=== PATIENT | male | born 1935 | race Caucasian/White ===

== ENCOUNTER 2017-05-28 07:57 | Day surgery (SDC) | payer MEDICARE, OTHER ==
[~2017-05-28 07:57] MED LIST: Lactated Ringers 1,000 ML IV SCH; Lidocaine 1%/Sod Bicarbonate in NS 8.4% 1 ML Syringe IV PRN; Sodium Chloride 0.9% 10 ML Syringe FLUSH PRN
--- NOTE | 2017-05-28 08:26 | PCM.PREANE ---
Preanesthetic Assessment - Procedure Proposed Procedure: Surveillance colonsocopy - Anesthesia/Transfusion/Family Hx Anesthesia History: Prior Anesthesia Without Reaction Family History of Anesthesia Reaction: No Transfusion History: Prior Transfusion Without Reaction (CABG) - Review of Systems General: No Symptoms Pulmonary: No Symptoms Cardiovascular: Other (CAD, CABG, HTN, GLD, cardiomyopathy, afib, DC,f walks every day at [facility] ) Gastrointestinal: Other (GERD) Neurological: Other (CVA 1996) Other: Reports: Easy Bleeding, Easy Bruising - Physical Assessment NPO Status Date: 05/27/17 NPO Status Time: 19:30 Pulse: 65 O2 Sat by Pulse Oximetry: 95 Respiratory Rate: 16 Blood Pressure: 157/99 Temperature: 36.5 C Height: 1.7 m Weight: 91.626 kg ASA Class: 3 Mental Status: Alert & Oriented x3 Airway Class: Mallampati = 3 Dentition: Reports: Dentures Thyro-Mental Finger Breadths: 3 Mouth Opening Finger Breadths: 3 ROM/Head Extension: Full Lungs: Clear to Auscultation, Normal Respiratory Effort Cardiovascular: Regular Rate, Irregular Rhythm (afib controlled ) - Allergies Allergies/Adverse Reactions: Allergies Allergy/AdvReac Type Severity Reaction Status Date / Time No Known Allergies Allergy Verified 04/10/15 15:36 - Blood Blood Available: No Product(s) Available: None - Anesthesia Plan Pre-Op Medication Ordered: None Beta Hiwot: Metoprolol Med Last Dose Date: 05/28/17 Med Last Dose Time: 06:00 - Acknowledgements Anesthesia Type Planned: MAC Pt an Appropriate Candidate for the Planned Anesthesia: Yes Alternatives and Risks of Anesthesia Discussed w Pt/Guardian: Yes Pt/Guardian Understands and Agrees with Anesthesia Plan: Yes PreAnesthesia Questionnaire HEENT History: Reports: Impaired Vision Other HEENT History: pharyngitis, glasses, dentures Cardiovascular History: Reports: Afib, Arrhythmia, CAD, High Cholesterol, Hypertension, Other (See Below) Other Cardiovascular History: cardiomyopathy, sick sinus syndrome, valvular heart disease, tachycardia, edena Respiratory History: Reports: Other (See Below) Other Respiratory History: acute bronchitis, pharyngitis, cough Gastrointestinal History: Reports: Colon Polyp, Hiatal Hernia Other Gastrointestinal History: acute upper GI bleed, dysplagia in colonic adenoma, esophagitis Genitourinary History: Reports: BPH Other Genitourinary History: elevated PSA CAN RECONDITIONER History: Reports: None Musculoskeletal History: Reports: Gout Other Musculoskeletal History: synovial cyst of popliteal space Neurological History: Reports: CVA, Other (See Below) Other Neuro History: stroke, cerebral embolism with cerebral infarction, syncope Psychiatric History: Reports: None Endocrine/Metabolic History: Reports: None Hematologic History: Reports: Anemia Immunologic History: Reports: None Oncologic (Cancer) History: Reports: Colon Other Dermatologic History: ruptured bakers cyst R knee, forearm contusion, sebaceous cyst - Past Surgical History Head Surgeries/Procedures: Reports: None Cardiovascular Surgical History: Reports: Coronary Artery Bypass Respiratory Surgical History: Reports: None GI Surgical History: Reports: Colonoscopy, EGD, Hernia Repair/Other, Other (See Below) Other GI Surgeries/Procedures: right hemicolectomy Female Surgical History: Reports: None Male Surgical History: Reports: None Endocrine Surgical History: Reports: None Neurological Surgical History: Reports: None Musculoskeletal Surgical History: Reports: Other (See Below) Other Musculoskeletal Surgeries/Procedures:: elbow nerve transposition Oncologic Surgical History: Reports: None - SUBSTANCE USE Smoking Status *Q: Never Smoker Tobacco Use Within Last Twelve Months: No Second Hand Smoke Exposure: No Recreational Drug Use History: No - HOME MEDS Home Medications: Home Meds Lisinopril 40 mg PO QAM 04/10/15 [History] Simvastatin [Zocor] 80 mg PO BEDTIME 04/10/15 [History] amLODIPine [Norvasc] 5 mg PO DAILY 04/10/15 [History] Allopurinol [Zyloprim] 150 mg PO DAILY 04/12/15 [History] Furosemide 40 mg PO DAILY 04/12/15 [History] Nitroglycerin 0.4 mg SL ASDIRECTED PRN 04/12/15 [History] Apixaban [Eliquis] 5 mg PO BID #28 tablet 04/15/15 [Rx] Lisinopril 20 mg PO BEDTIME 05/24/17 [History] Multivitamin [Multivitamins] 1 cap PO DAILY 05/24/17 [History] - CURRENT (IN HOUSE) MEDS Current Meds: Current Medications Lactated Ringer's (Ringers, Lactated) 1,000 mls @ 125 mls/hr IV ASDIRECTED NESSA Stop: 05/28/17 23:00 Lidocaine/Sodium Bicarbonate (Buffered Lidocaine 1% In Ns 8.4%) 0.25 ml IV ONETIME PRN PRN Reason: Prior to IV Start Stop: 05/28/17 18:00 Sodium Chloride (Saline Flush) 10 ml FLUSH ASDIRECTED PRN PRN Reason: Keep Vein Open Stop: 05/28/17 18:00
[2017-05-28] MEDS ORDERED: Propofol 200 MG/20 ML SDV ONE ×2 (08:37→09:16)
[2017-05-28] MEDS ORDERED: Lidocaine 1% 4 ML ONE (08:38)
--- NOTE | 2017-05-28 09:29 | PCM.OPNOTE ---
- General Post-Op/Procedure Note Date of Surgery/Procedure: 05/28/17 Operative Procedure(s): colonoscopy to iliocolnic anastomosis with removal of completely of two diminutive polyp one at 40 cm and the other at 38 cm Pre Op Diagnosis: personal hx of colon cancer Post-Op Diagnosis: Same Anesthesia Technique: MAC Primary Surgeon: Ronny Owens EBL in mLs: 0 Complications: None Condition: Good
[2017-05-28 09:44] VITALS: BP 114/83
--- NOTE | 2017-05-28 10:55 | PCM48HPAN ---
Post Anesthesia Note - EVALUATION WITHIN 48HRS OF ANESTHETIC Vital Signs in Normal Range: Yes Patient Participated in Evaluation: Yes Respiratory Function Stable: Yes Airway Patent: Yes Cardiovascular Function Stable: Yes Hydration Status Stable: Yes Pain Control Satisfactory: Yes Nausea and Vomiting Control Satisfactory: Yes Mental Status Recovered: Yes
--- NOTE | 2017-05-28 15:23 | OR ---
DATE OF OPERATION: 05/28/2017 SURGEON: Ronny Owens MD PREOPERATIVE DIAGNOSIS: Surveillance colonoscopy and personal history of colon cancer. POSTOPERATIVE DIAGNOSIS: Surveillance colonoscopy and personal history of colon cancer. OPERATION PERFORMED: Surveillance colonoscopy with polypectomy x2. FINDINGS: Ileocolonic anastomosis is functioning well without any problem or abnormality. There is severe sigmoid diverticulosis and 2 diminutive polyps, one at 40 cm and one at 38 cm, both removed by cautery snare completely. The polyp at 40 cm was retrieved and the polyp at 38 cm was not. No angiodysplasias, large tumor masses, ulcerations, hemorrhoids, or diverticulum were noted, along with 2 diminutive polyps. DESCRIPTION OF PROCEDURE: The patient was taken to the endoscopy room, placed in a supine position, connected to monitoring equipment, and given IV sedation. The patient was placed in the left lateral position. Perianal area was inspected and was normal. Rectal exam showed good sphincter tone. A video Olympus colonoscope was then introduced into the rectum and threaded up without problem to the ileocolonic anastomosis. This was carefully viewed and was free of any gross pathology. Scope was slowly withdrawn from the ileocolonic anastomosis, transverse colon, descending colon, sigmoid colon, and rectum. Retroflexed view was done. Two polyps were noted, one at 40 and the other at 38 cm. Both were diminutive and both were lassoed with cautery snare and completely removed. Only the 40 cm polyp was retrieved and sent to pathology. The other was lost in the area of diverticulosis. The patient tolerated the procedure, was sent to recovery room in a stable condition, and will be followed up in the clinic. ANESTHESIA: ESTIMATED BLOOD LOSS: MMODAL /[id number]
== END 2017-05-28 10:12 | disposition home or self-care (01) ==
LOC: JD.SDS 07:57
PROVIDERS: ATTEND Surgery
DX: Z12.11 Encounter for screening for malignant neoplasm of colon (principal); D12.7 Benign neoplasm of rectosigmoid junction; K57.30 Diverticulosis of large intestine without perforation or abscess without bleeding; K21.9 Gastro-esophageal reflux disease without esophagitis; I25.10 Atherosclerotic heart disease of native coronary artery without angina pectoris; I10 Essential (primary) hypertension; I49.5 Sick sinus syndrome; I48.0 Paroxysmal atrial fibrillation; I42.9 Cardiomyopathy, unspecified; I38 Endocarditis, valve unspecified; I25.2 Old myocardial infarction; I49.3 Ventricular premature depolarization; E78.00 Pure hypercholesterolemia, unspecified; N40.0 Benign prostatic hyperplasia without lower urinary tract symptoms; M10.9 Gout, unspecified; D50.0 Iron deficiency anemia secondary to blood loss (chronic); C61 Malignant neoplasm of prostate; Z85.038 Personal history of other malignant neoplasm of large intestine; Z86.73 Personal history of transient ischemic attack (TIA), and cerebral infarction without residual deficits; Z86.010 Personal history of colon polyps; Z90.49 Acquired absence of other specified parts of digestive tract; Z95.5 Presence of coronary angioplasty implant and graft; Z96.651 Presence of right artificial knee joint; Z98.890 Other specified postprocedural states; Z79.01 Long term (current) use of anticoagulants; Z79.899 Other long term (current) drug therapy
CPT/HCPCS: 45385; J7120; 00810; 88305; J2704

== ENCOUNTER 2018-07-01 07:22 | Emergency (ER) | payer MEDICARE, OTHER ==
[2018-07-01 07:44] VITALS: BP 150/100
--- NOTE | 2018-07-01 08:17 | EDM.PDOC ---
ED HPI GENERAL MEDICAL PROBLEM - General Chief Complaint: Cardiovascular Problem Stated Complaint: HEART ISSUE Time Seen by Provider: 07/01/18 07:22 Source of Information: Reports: Patient, Family (), Provider (Dr. Kimble) , RN (Nichole) History Limitations: Reports: No Limitations - History of Present Illness INITIAL COMMENTS - FREE TEXT/NARRATIVE: I was contacted by Dr. Kimble at 07:15. He was performing a Lexiscan + Cardiolite cardiac stress test on the patient, when the patient developed a Mobitz type II heart block and an intermittent bundle branch block, with bradycardia down to 40 bpm. He was going to have the patient brought immediately to the ED, and recommended that we get the external pacer pads ready. When the patient arrived to the ED a few minutes later, he was hemodynamically stable, with a heart rate in the 70s. He stated that he felt completely back to normal, but that after the Lexiscan was injected, he developed some nausea, lightheadedness, and slight shortness of breath, that lasted a few minutes. He was found to be bradycardic. At no time did he have any chest discomfort. An ECG was performed, revealing a normal sinus rhythm with first-degree AV block and frequent PVCs. There is a left bundle branch block with left axis deviation, and a prolonged QTc. I reviewed the ECGs obtained during the Lexiscan , and found that at no time did the patient developed a Mobitz type II heart block, rather, he simply became bradycardic following injection of the Lexiscan. The patient's stated that the patient had had a similar bradycardic episode when he had cataract surgery. The patient stated that today's stress test was preoperative, that he is scheduled for a left total knee arthroplasty on 07/09/[address] Fredi Larsen, in [place]. The patient's PCP is Dr. Luo. The patient's Funeral Home General Manager is Dr. Hollingsworth. - Related Data Allergies Allergy/AdvReac Type Severity Reaction Status Date / Time No Known Allergies Allergy Verified 07/01/18 07:29 Home Meds: Home Meds Lisinopril 40 mg PO QAM 04/10/15 [History] Simvastatin [Zocor] 80 mg PO BEDTIME 04/10/15 [History] amLODIPine [Norvasc] 5 mg PO DAILY 04/10/15 [History] Allopurinol [Zyloprim] 150 mg PO DAILY 04/12/15 [History] Furosemide 40 mg PO DAILY 04/12/15 [History] Nitroglycerin 0.4 mg SL ASDIRECTED PRN 04/12/15 [History] Apixaban [Eliquis] 5 mg PO BID #28 tablet 04/15/15 [Rx] Multivitamin [Multivitamins] 1 cap PO DAILY 05/24/17 [History] Lutein/Minerals/Vit A,C & E [Ocuvite] 1 cap PO DAILY 07/01/18 [History] Metoprolol Succinate [Toprol XL 50mg] 50 mg PO DAILY 07/01/18 [History] Past Medical History HEENT History: Reports: Impaired Vision Other HEENT History: glasses, dentures Cardiovascular History: Reports: Afib (paroxysmal), CAD, Heart Failure, High Cholesterol, Hypertension, HI (1995) Gastrointestinal History: Reports: Colon Polyp, GERD, Hiatal Hernia Musculoskeletal History: Reports: Gout (suspected), Osteoarthritis, Other (See Below) (Ruptured Downey cyst right knee) Neurological History: Reports: CVA (1996, s/p t-PA) Endocrine/Metabolic History: Reports: Obesity/BMI 30+ Hematologic History: Reports: Anemia, Anticoagulation Therapy (Eliquis) Oncologic (Cancer) History: Reports: Colon, Prostate - Past Surgical History HEENT Surgical History: Reports: Cataract Surgery Cardiovascular Surgical History: Reports: Coronary Artery Bypass (x 4 vessel, 1995) GI Surgical History: Reports: Appendectomy (incidental), Colonoscopy, EGD, Hernia, Inguinal (bilateral), Other (See Below) (Right hemicolectomy) Musculoskeletal Surgical History: Reports: Knee Replacement (right), Nerve Relocation (right ulnar) Social & Family History - Tobacco Use Smoking Status *Q: Never Smoker - Caffeine Use Caffeine Use: Reports: None - Alcohol Use Alcohol Use History: Yes Alcohol Use Frequency: Rarely - Recreational Drug Use Recreational Drug Use: No - Living Situation & Occupation Living situation: Reports: , with Spouse Occupation: Retired ED ROS GENERAL - Review of Systems Review Of Systems: ROS reveals no pertinent complaints other than HPI. ED EXAM, GENERAL - Physical Exam Exam: See Below Exam Limited By: No Limitations General Appearance: Alert, WD/WN, No Apparent Distress Eye Exam: Bilateral Eye: EOMI, Normal Inspection Ears: Normal External Exam, Hearing Grossly Normal Nose: Normal Inspection Throat/Mouth: Normal Inspection, Normal Lips, Normal Voice, No Airway Compromise Head: Atraumatic, Normocephalic Neck: Normal Inspection, Full Range of Motion Respiratory/Chest: No Respiratory Distress, Lungs Clear, Normal Breath Sounds, No Accessory Muscle Use Cardiovascular: Normal Peripheral Pulses, No Edema, No Gallop, No JVD, No Murmur , No Rub, Irregularly Irregular (regular rate) Peripheral Pulses: 4+: Radial (L), Radial (R) GI/Abdominal: Normal Bowel Sounds, Soft, Non-Tender, No Organomegaly, No Distention, No Abnormal Bruit, No Mass, Other (Obese) (Male) Exam: Deferred Rectal (Males) Exam: Deferred Back Exam: Normal Inspection, Full Range of Motion, NT Extremities: Normal Inspection, Normal Range of Motion, Normal Capillary Refill Neurological: Alert, Oriented, Normal Cognition, No Motor/Sensory Deficits Psychiatric: Normal Affect Skin Exam: Warm, Dry, Intact, Normal Color, No Rash EKG INTERPRETATION EKG Date: 07/01/18 Time: 07:24 Rhythm: NSR (Frequent PVCs) Rate (Beats/Min): 73 Kingman: LAD-Left Kingman Deviation P-Wave: Present (1 AVB) QRS: LBBB ST-T: Normal QT: Prolonged (QTc 515 ms) Comparison: Change From Previous EKG (No PVCs on 04/12/2015 ECG, otherwise no significant changes) Course - Vital Signs Last Recorded V/S: Last Vital Signs Temp 36.9 C 07/01/18 07:39 Pulse 74 07/01/18 07:39 Resp 14 07/01/18 07:39 BP 150/100 H 07/01/18 07:39 Pulse Ox 95 07/01/18 07:39 - Orders/Labs/Meds Labs: Laboratory Tests 07/01/18 07/01/18 Range/Units 08:00 08:00 WBC 5.95 (4.23-9.07) K/mm3 RBC 5.20 (4.63-6.08) M/mm3 Hgb 15.9 (13.7-17.5) gm/L Hct 47.0 (40.1-51.0) % MCV 90.4 (79.0-92.2) fl MCH 30.6 (25.7-32.2) pg MCHC 33.8 (32.2-35.5) g/dl RDW Std Deviation 47.2 H (35.1-43.9) fL Plt Count 173 (163-337) K/mm3 MPV 10.6 (9.4-12.3) fl Neutrophils % (Manual) 69 H (40-60) % Band Neutrophils % 0 (0-10) % Lymphocytes % (Manual) 26 (20-40) % Atypical Lymphs % 0 % Monocytes % (Manual) 3 (2-10) % Eosinophils % (Manual) 2 (0.8-7.0) % Basophils % (Manual) 0 L (0.2-1.2) Platelet Estimate Adequate RBC Morph Comment Normal Sodium 142 (136-145) mEq/L Potassium 3.9 (3.5-5.1) mEq/L Chloride 107 (98-107) mEq/L Carbon Dioxide 28 (21-32) mEq/L Anion Gap 10.9 (5-15) BUN 17 (7-18) mg/dL Creatinine 1.0 (0.7-1.3) mg/dL Est Cr Clr Drug Dosing 55.10 mL/min Estimated GFR (MDRD) > 60 (>60) mL/min BUN/Creatinine Ratio 17.0 (14-18) Glucose 123 H (83-115) mg/dL Calcium 9.0 (8.5-10.1) mg/dL Magnesium 2.0 (1.8-2.4) mg/dl Total Bilirubin 1.0 (0.2-1.0) mg/dL AST 20 (15-37) U/L ALT 23 (16-63) U/L Alkaline Phosphatase 102 (46-116) U/L Troponin I < 0.017 (0.00-0.056) ng/mL Total Protein 7.4 (6.4-8.2) g/dl Albumin 3.7 (3.4-5.0) g/dl Globulin 3.7 gm/dL Albumin/Globulin Ratio 1.0 (1-2) - Re-Assessments/Exams Free Text/Narrative Re-Assessment/Exam: 07/01/18 08:42 Copies of the CytoPherxan ECGs and the ECG done here in the ED were faxed to [facility] Case then discussed with Dr. Hollingsworth at 08:37. Unfortunately, he is not where the faxes were faxed to, therefore he is unable to see them at this time, however we are going to re-fax them to where he is currently located. That being said, Dr. Hollingsworth noted that Lexiscan often causes A-V blocks, that it is usually short-lived, and that nothing needs to be done. He will call me back after he reviews the ECGs. 07/01/18 09:00 Portable chest x-ray is read by Dr. Bundy as: 1. Cardiomegaly. Mild atelectasis and prior sternotomy. 2. Nothing acute is otherwise seen. 07/01/18 09:[address] Hollingsworth at 09:24. He has had a chance to review the ECGs. He feels that the patient was suffering from sinus bradycardia, likely as a result of the Lexiscan. He said that whether it was a vagal reaction or due to the Lexiscan, however, it does not matter, for no treatment is required in either case. 07/01/18 09:55 Test results discussed with the patient and his . The patient has remained hemodynamically stable and feels completely normal. I will discharge him home. I do not know the status of the patient's cardiac stress test, or whether or not he needs to return for additional testing. The patient is on metoprolol. He will need to speak with his anesthesiologist prior to his scheduled knee surgery, to see if he should hold the metoprolol. 07/01/18 10:[address] Kimble. He suggested that the patient go back to Radiology to see if additional imaging is necessary. Departure - Departure Time of Disposition: 09:56 Disposition: Home, Self-Care 01 Condition: Good Clinical Impression: Sinus bradycardia Instructions: Bradycardia, Adult Referrals: Rehan Warner MD [Primary Care Provider] - Joceline Honeycutt MD [Ordering Only Provider] - Forms: ED Department Discharge Additional Instructions: You were seen in the emergency room after your heart during your Lexiscan stress test. Workup in the ER included blood work, a chest x-ray, and an ECG. All of your ECGs were reviewed by your Funeral Home General Manager, Dr. Hollingsworth. Your heart appears to slow down because of the Carmenza that was injected. This is a known side effect, but Dr. Hollingsworth said that no treatment is necessary. We recommend that you return to the radiology department today to see if additional imaging is necessary. Otherwise, continue to take your usual medicines, as prescribed. We recommend that you discuss your medications, in particular, your metoprolol, with your Anesthesiologist prior to your scheduled operation on 07/09/2018. If any other problems, please do not hesitate to return to the ER.
--- NOTE | 2018-07-01 08:47 | CR ---
Chest: Portable view of the chest was obtained. Comparison: No prior chest x-ray. Heart is enlarged. Tortuous thoracic aorta is seen. Mild left retrocardiac atelectasis is seen. Lungs otherwise are clear. Previous sternotomy is noted. Impression: 1. Cardiomegaly. Mild atelectasis and prior sternotomy. 2. Nothing acute is otherwise seen. Diagnostic code #3
== END 2018-07-01 10:22 | disposition home or self-care (01) ==
LOC: JD.ED 07:22
DX: R00.1 Bradycardia, unspecified (principal); I48.91 Unspecified atrial fibrillation; I25.10 Atherosclerotic heart disease of native coronary artery without angina pectoris; E78.00 Pure hypercholesterolemia, unspecified; I11.0 Hypertensive heart disease with heart failure; I25.2 Old myocardial infarction; I50.9 Heart failure, unspecified; Z79.899 Other long term (current) drug therapy
CPT/HCPCS: 36415; 71045; 71045-26; 80053; 83735; 84484; 85007; 85027; 93005; 99284-25

== ENCOUNTER 2019-05-05 08:39 | Emergency (ER) | payer MEDICARE, OTHER ==
[2019-05-05 08:52] VITALS: BP 156/99; PULSE 70
[2019-05-05] MEDS ORDERED: Albuterol/Ipratropium 3.0-0.5 MG/3 ML Neb Soln NEB ONE (09:07)
--- NOTE | 2019-05-05 09:11 | EDM.PDOC ---
ED HPI GENERAL MEDICAL PROBLEM - General Chief Complaint: Respiratory Problem Stated Complaint: RESPIRATORY ISSUES Time Seen by Provider: 05/05/19 09:00 Source of Information: Reports: Patient History Limitations: Reports: No Limitations - History of Present Illness INITIAL COMMENTS - FREE TEXT/NARRATIVE: Patient is an 83-year-old male who was [facility] to [facility] for complaints of chronic cough for the last 2 months with worsening symptoms over the last 2 weeks. The patient denies any chest pain, fever, chills, nausea, vomiting, or diarrhea during this time period. The patient does have a history developing bronchitis around this time of year. No history of pneumonia or any chronic lung conditions. He does however have a history of A. fib, CAD, heart failure, hypertension, cardiomyopathy, sick sinus syndrome, and valvular heart disease. The patient does state that he has gained about 3 pounds over the last week and that he does have some mild swelling in his lower extremities. He is on Lasix 40mg every other day. Denies increased shortness of breath or dyspnea on exertion. Chest Pain Score (Numeric/FACES): 2 - Related Data Allergies Allergy/AdvReac Type Severity Reaction Status Date / Time No Known Allergies Allergy Verified 05/05/19 08:52 Home Meds: Home Meds amLODIPine [Norvasc] 5 mg PO DAILY 04/10/15 [History] Allopurinol [Zyloprim] 150 mg PO DAILY 04/12/15 [History] Furosemide 40 mg PO DAILY 04/12/15 [History] Apixaban [Eliquis] 5 mg PO BID #28 tablet 04/15/15 [Rx] Metoprolol Succinate [Toprol XL 50mg] 50 mg PO DAILY 07/01/18 [History] Latanoprost/Pf [Latanoprost 0.005% Eye Drop] 1 drop EYELF DAILY 01/01/19 [ History] Losartan [Cozaar] 100 mg PO DAILY 01/01/19 [History] Rosuvastatin Calcium 40 mg PO BEDTIME 01/01/19 [History] Acetaminophen 1,000 mg PO Q6H PRN 05/05/19 [History] Albuterol [Ventolin HFA] 2 puff INH Q4H PRN #1 inhaler 05/05/19 [Rx] Clopidogrel [Plavix] 75 mg PO DAILY 05/05/19 [History] Doxycycline [Vibramycin] 100 mg PO BID #20 tab 05/05/19 [Rx] Isosorbide Mononitrate [Imdur] 30 mg PO DAILY 05/05/19 [History] Mag Carb/Al Hydrox/Alginic Ac [Gaviscon Extra Strength Liquid] 15 ml PO BID PRN 05/05/19 [History] Mag Hydrox/Aluminum Hyd/Simeth [Mylanta Maximum Strength Liq] 15 ml PO DAILY PRN 05/05/19 [History] Past Medical History HEENT History: Reports: Impaired Vision Other HEENT History: glasses, dentures Cardiovascular History: Reports: Afib, CAD, Heart Failure, High Cholesterol, Hypertension, [place] Other Cardiovascular History: cardiomyopathy, sick sinus syndrome, valvular heart disease, tachycardia, edena Respiratory History: Reports: Other (See Below) Other Respiratory History: acute bronchitis, pharyngitis, cough Gastrointestinal History: Reports: Colon Polyp, GERD, Hiatal Hernia Other Gastrointestinal History: acute upper GI bleed, dysplagia in colonic adenoma, esophagitis Genitourinary History: Reports: BPH Other Genitourinary History: elevated PSA Musculoskeletal History: Reports: Gout, Osteoarthritis, Other (See Below) Other Musculoskeletal History: synovial cyst of popliteal space Neurological History: Reports: CVA Other Neuro History: stroke, cerebral embolism with cerebral infarction, syncope Psychiatric History: Reports: None Endocrine/Metabolic History: Reports: Obesity/BMI 30+ Hematologic History: Reports: Anemia, Anticoagulation Therapy Immunologic History: Reports: None Oncologic (Cancer) History: Reports: Colon, Prostate Other Dermatologic History: ruptured bakers cyst R knee, forearm contusion, sebaceous cyst - Past Surgical History Head Surgeries/Procedures: Reports: None HEENT Surgical History: Reports: Cataract Surgery Cardiovascular Surgical History: Reports: Coronary Artery Bypass Respiratory Surgical History: Reports: None GI Surgical History: Reports: Appendectomy, Colonoscopy, EGD, Hernia, Inguinal, Other (See Below) Male Surgical History: Reports: None Musculoskeletal Surgical History: Reports: Knee Replacement, Nerve Relocation Social & Family History - Family History Family Medical History: Noncontributory - Caffeine Use Caffeine Use: Reports: Soda, Tea Caffeine Use Comment: drinks tea every day - Living Situation & Occupation Living situation: Reports: , with Spouse Occupation: Retired ED ROS GENERAL - Review of Systems Review Of Systems: See Below Constitutional: Reports: No Symptoms. Denies: Fever, Chills, Weakness HEENT: Reports: No Symptoms Respiratory: Reports: Wheezing, Cough. Denies: Shortness of Breath, Pleuritic Chest Pain Cardiovascular: Reports: Edema. Denies: Chest Pain, Dyspnea on Exertion Endocrine: Reports: No Symptoms GI/Abdominal: Reports: No Symptoms : Reports: No Symptoms Musculoskeletal: Reports: No Symptoms Skin: Reports: No Symptoms Neurological: Reports: No Symptoms Psychiatric: Reports: No Symptoms Hematologic/Lymphatic: Reports: No Symptoms Immunologic: Reports: No Symptoms ED EXAM, GENERAL - Physical Exam Exam: See Below Exam Limited By: No Limitations General Appearance: Alert, WD/WN, No Apparent Distress Head: Atraumatic, Normocephalic Respiratory/Chest: No Respiratory Distress, No Accessory Muscle Use, Chest Non- Tender, Wheezing (expiratory throughout). No: Crackles, Rhonchi Cardiovascular: Normal Peripheral Pulses, Regular Rate, Rhythm, No JVD, No Murmur, Other (1+ edema to BLE) GI/Abdominal: Normal Bowel Sounds, Soft, Non-Tender, No Distention Extremities: Normal Inspection, Non-Tender, Pedal Edema (1+ bilaterally) Neurological: Alert, Oriented, Normal Cognition Psychiatric: Normal Affect, Normal Mood Skin Exam: Warm, Dry, Intact, Normal Color, No Rash Lymphatic: No Adenopathy Course - Vital Signs Last Recorded V/S: Last Vital Signs Temp 97.2 F 05/05/19 08:49 Pulse 70 05/05/19 08:49 Resp 16 05/05/19 08:49 BP 156/99 H 05/05/19 08:49 Pulse Ox 90 L 05/05/19 09:16 - Orders/Labs/Meds Orders: Active Orders 24 hr Category Date Time Status EKG Documentation Completion [RC] STAT Care 05/05/19 08:50 Active RT Aerosol Therapy [RC] ASDIRECTED Care 05/05/19 09:07 Active Labs: Laboratory Tests 05/05/19 05/05/19 05/05/19 Range/Units 09:54 09:54 09:54 WBC 7.87 (4.23-9.07) K/mm3 RBC 4.76 (4.63-6.08) M/mm3 Hgb 14.0 (13.7-17.5) gm/dl Hct 42.1 (40.1-51.0) % MCV 88.4 (79.0-92.2) fl MCH 29.4 (25.7-32.2) pg MCHC 33.3 (32.2-35.5) g/dl RDW Std Deviation 49.5 H (35.1-43.9) fL Plt Count 193 (163-337) K/mm3 MPV 11.1 (9.4-12.3) fl Neut % (Auto) 63.0 (34.0-67.9) % Lymph % (Auto) 27.7 (21.8-53.1) % [place] % (Auto) 7.4 (5.3-12.2) % Eos % (Auto) 1.4 (0.8-7.0) Baso % (Auto) 0.4 (0.1-1.2) % Neut # (Auto) 4.96 (1.78-5.38) K/mm3 Lymph # (Auto) 2.18 (1.32-3.57) K/mm3 [place] # (Auto) 0.58 (0.30-0.82) K/mm3 Eos # (Auto) 0.11 (0.04-0.54) K/mm3 Baso # (Auto) 0.03 (0.01-0.08) K/mm3 Sodium 144 (136-145) mEq/L Potassium 4.3 (3.5-5.1) mEq/L Chloride 109 H (98-107) mEq/L Carbon Dioxide 24 (21-32) mEq/L Anion Gap 15.3 H (5-15) BUN 15 (7-18) mg/dL Creatinine 0.8 (0.7-1.3) mg/dL Est Cr Clr Drug Dosing 67.69 mL/min Estimated GFR (MDRD) > 60 (>60) mL/min BUN/Creatinine Ratio 18.8 H (14-18) Glucose 119 H (83-115) mg/dL Calcium 8.9 (8.5-10.1) mg/dL Total Bilirubin 1.4 H (0.2-1.0) mg/dL AST 24 (15-37) U/L ALT 21 (16-63) U/L Alkaline Phosphatase 96 (46-116) U/L Troponin I < 0.017 (0.00-0.056) ng/mL NT-Pro-B Natriuret Pep 1718 H (0-450) pg/mL Total Protein 7.5 (6.4-8.2) g/dl Albumin 3.6 (3.4-5.0) g/dl Globulin 3.9 gm/dL Albumin/Globulin Ratio 0.9 L (1-2) Meds: Medications Discontinued Medications Generic Name Dose Route Start Last Admin Trade Name Giancarlo PRN Reason Stop Dose Admin Albuterol/Ipratropium 3 ml 05/05/19 09:07 05/05/19 09:16 Duoneb 3.0-0.5 Mg/3 Ml NEB 05/05/19 09:08 3 ml ONETIME ONE Administration - Re-Assessments/Exams Free Text/Narrative Re-Assessment/Exam: Patient is an 83-year-old male who was sent to the ER from the [facility] with complaints of chronic cough for the last 2 months with symptoms worsening over the last 2 weeks. He does also have a 3 pound weight gain over the last week and does have 1+ peripheral edema to the bilateral lower extremities. On assessment he does have expiratory wheezing throughout. I have ordered a DuoNeb. Will complete a cardiac and respiratory workup on the patient including a CBC, CMP, troponin, proBNP, EKG, and two-view chest x-ray. Free Text/Narrative Re-Assessment/Exam: 05/05/19 11:22 the patient's labs were grossly unremarkable, with the exception of the BNP elevated at 1718. His chest x-ray does show an enlarged heart, slight pulmonary vascular congestion as well as emphysematous changes. He continues to deny any shortness of breath. And the wheeze has improved after the DuoNeb. The patient did state that he is only been taking his Lasix every other day instead of daily. We will discharge the patient home with instructions to take his Lasix daily, as well as with a prescription for doxycycline and an albuterol inhaler for bronchitis. The patient does have follow-up appointment with his primary care provider, Dr. Luo, on 15 May. He has been instructed to return to the emergency department if he has any worsening symptoms. Departure - Departure Time of Disposition: 11:27 Disposition: Home, Self-Care 01 Condition: Fair Clinical Impression: Bronchitis - Discharge Information *PRESCRIPTION DRUG MONITORING PROGRAM REVIEWED*: No *COPY OF PRESCRIPTION DRUG MONITORING REPORT IN PATIENT EVANGELIST: No Prescriptions: Albuterol [Ventolin HFA] 2 puff INH Q4H PRN #1 inhaler PRN Reason: Wheezing Doxycycline [Vibramycin] 100 mg PO BID #20 tab Instructions: Acute Bronchitis, Adult, [id number] Referrals: Rehan Warner MD [Primary Care Provider] - Forms: ED Department Discharge Additional Instructions: You were seen in the emergency Department today with complaints of cough for the last 2 months with worsening symptoms last 2 weeks. Your EKG and labs were negative for any acute cardiac event, however your chest x-ray does show that she will have slight congestion in your lungs likely related to her CHF. At this time we recommend that you increase your Lasix to 40 mg daily instead of every other day as you've been taking it. We have also sent a prescription for doxycycline to be taken twice daily for the next 10 days for the treatment of bronchitis. This prescription was sent electronically to an ED pharmacy in [place]. We recommend that you keep your appointment with Dr. Luo on 15 May. If you should experience any worsening symptoms please do not hesitate to return to the emergency department. - My Orders Last 24 Hours: My Active Orders 05/05/19 08:50 EKG Documentation Completion [RC] STAT 05/05/19 09:07 RT Aerosol Therapy [RC] ASDIRECTED - Assessment/Plan Last 24 Hours: My Active Orders 05/05/19 08:50 EKG Documentation Completion [RC] STAT 05/05/19 09:07 RT Aerosol Therapy [RC] ASDIRECTED
--- NOTE | 2019-05-05 11:12 | CR ---
Chest: Two views of the chest were obtained. Comparison: Prior chest x-ray of 08/04/18. Heart is enlarged. Pulmonary vessels may be slightly congested. Prior sternotomy is noted. Lungs are hyperinflated compatible with emphysematous change. Scattered disc space narrowing and endplate spurring is noted within the spine. Impression: 1. Heart is enlarged. 2. Pulmonary vessels slightly congested. 3. Emphysematous change. Diagnostic code #3
== END 2019-05-05 11:38 | disposition home or self-care (01) ==
LOC: JD.ED 08:39
DX: J40 Bronchitis, not specified as acute or chronic (principal); I11.0 Hypertensive heart disease with heart failure; I50.9 Heart failure, unspecified; I25.10 Atherosclerotic heart disease of native coronary artery without angina pectoris; I48.91 Unspecified atrial fibrillation; E78.00 Pure hypercholesterolemia, unspecified; I25.2 Old myocardial infarction; Z79.01 Long term (current) use of anticoagulants; Z79.899 Other long term (current) drug therapy
CPT/HCPCS: 36415; 71046; 71046-26; 80053; 83880; 84484; 85025; 93005; 93010; 94640; 99283; 99284-25; J7620-GY

== ENCOUNTER 2020-11-09 17:53 | Emergency (ER) | payer MEDICARE, OTHER ==
[2020-11-09 18:18] VITALS: BP 126/66; PULSE 70
[2020-11-09] MEDS ORDERED: Lidocaine 1% 10 ML MDV INJECT ONE (18:40)
--- NOTE | 2020-11-09 19:11 | EDM.PDOC ---
ED HPI GENERAL MEDICAL PROBLEM - General Chief Complaint: General Stated Complaint: FISH HOOK STUCK ON LT HAND Time Seen by Provider: 11/09/20 18:34 Source of Information: Reports: Patient History Limitations: Reports: No Limitations - History of Present Illness INITIAL COMMENTS - FREE TEXT/NARRATIVE: 84-year-old male presents the emergency department with a fishhook in the dorsal aspect of his left hand just between his first and second knuckle. Patient states he was getting his boat ready to go fishing tomorrow when he was reaching under looking for the hook remover when he brought his hand back and fishhook caught him. He states that he tried to get the hook out at home but was unable to. This happened just prior to arrival. This is a brand-new hook and has not been used for any fishing. Patient states his tetanus is approximately 5 years old. Patient states he is on 2 different blood thinners. - Related Data Allergies Allergy/AdvReac Type Severity Reaction Status Date / Time No Known Allergies Allergy Verified 11/09/20 18:18 Home Meds: Home Meds amLODIPine [Norvasc] 5 mg PO DAILY 04/10/15 [History] Allopurinol [Zyloprim] 50 mg PO DAILY 04/12/15 [History] Furosemide 40 mg PO ASDIRECTED 04/12/15 [History] Apixaban [Eliquis] 5 mg PO BID #28 tablet 04/15/15 [Rx] Metoprolol Succinate [Toprol XL 50mg] 50 mg PO DAILY 07/01/18 [History] Latanoprost/Pf [Latanoprost 0.005% Eye Drop] 1 drop EYEBOTH DAILY 01/01/19 [History] Losartan [Cozaar] 100 mg PO DAILY 01/01/19 [History] Rosuvastatin Calcium 40 mg PO BEDTIME 01/01/19 [History] Acetaminophen 1,000 mg PO Q6H PRN 05/05/19 [History] Isosorbide Mononitrate [Imdur] 30 mg PO DAILY 05/05/19 [History] Mag Carb/Aluminum Hydrox/Algin [Gaviscon Extra Strength Liquid] 15 ml PO BID PRN 05/05/19 [History] Mag Hydrox/Aluminum Hyd/Simeth [Mylanta Maximum Strength Liq] 15 ml PO DAILY PRN 05/05/19 [History] Past Medical History HEENT History: Reports: Impaired Vision Other HEENT History: glasses, dentures Cardiovascular History: Reports: Afib, CAD, Heart Failure, High Cholesterol, Hypertension, [place] Other Cardiovascular History: cardiomyopathy, sick sinus syndrome, valvular heart disease, tachycardia, [place]ena Respiratory History: Reports: Other (See Below) Other Respiratory History: acute bronchitis, pharyngitis, cough Gastrointestinal History: Reports: Colon Polyp, GERD, Hiatal Hernia Other Gastrointestinal History: acute upper GI bleed, dysplagia in colonic adenoma, esophagitis Genitourinary History: Reports: BPH Other Genitourinary History: elevated PSA Musculoskeletal History: Reports: Gout, Osteoarthritis, Other (See Below) Other Musculoskeletal History: synovial cyst of popliteal space Neurological History: Reports: CVA Other Neuro History: stroke, cerebral embolism with cerebral infarction, syncope Psychiatric History: Reports: None Endocrine/Metabolic History: Reports: Obesity/BMI 30+ Hematologic History: Reports: Anemia, Anticoagulation Therapy Immunologic History: Reports: None Oncologic (Cancer) History: Reports: Colon, Prostate Other Dermatologic History: ruptured bakers cyst R knee, forearm contusion, sebaceous cyst - Infectious Disease History Infectious Disease History: Reports: Chicken Pox, Measles, Mumps - Past Surgical History Head Surgeries/Procedures: Reports: None HEENT Surgical History: Reports: Cataract Surgery Cardiovascular Surgical History: Reports: Coronary Artery Bypass Respiratory Surgical History: Reports: None GI Surgical History: Reports: Appendectomy, Colonoscopy, EGD, Hernia, Inguinal, Other (See Below) Other GI Surgeries/Procedures: right hemicolectomy Male Surgical History: Reports: None Endocrine Surgical History: Reports: None Neurological Surgical History: Reports: None Musculoskeletal Surgical History: Reports: Knee Replacement, Nerve Relocation Other Musculoskeletal Surgeries/Procedures:: elbow nerve transposition Oncologic Surgical History: Reports: None Social & Family History - Family History Family Medical History: No Pertinent Family History - Tobacco Use Tobacco Use Status *Q: Never Tobacco User Second Hand Smoke Exposure: No - Caffeine Use Caffeine Use: Reports: Coffee Caffeine Use Comment: drinks tea every day - Recreational Drug Use Recreational Drug Use: No - Living Situation & Occupation Living situation: Reports: , with Spouse Occupation: Retired ED ROS GENERAL - Review of Systems Review Of Systems: Comprehensive ROS is negative, except as noted in HPI. ED EXAM, GENERAL - Physical Exam Exam: See Below Exam Limited By: No Limitations General Appearance: Alert, WD/WN, No Apparent Distress Ears: Normal External Exam, Hearing Grossly Normal Nose: Normal Inspection Throat/Mouth: Normal Inspection, Normal Lips, Normal Voice, No Airway Compromise Head: Atraumatic Neck: Normal Inspection Respiratory/Chest: No Respiratory Distress, No Accessory Muscle Use Cardiovascular: Normal Peripheral Pulses, Regular Rate, Rhythm GI/Abdominal: No Distention (Male) Exam: Deferred Rectal (Males) Exam: Deferred Back Exam: Normal Inspection Extremities: Normal Inspection Neurological: Alert, Oriented, Normal Cognition Psychiatric: Normal Affect, Normal Mood Skin Exam: Warm, Dry, Normal Color, No Rash, Other ([place] between first and second knuckle on dorsal aspect of the left hand. There does not appear to be any tendon involvement. Patient is able to wiggle all digits. And denies any numbness and tingling.) Lymphatic: No Adenopathy Course - Vital Signs Text/Narrative:: Patient presents with a fishhook to the dorsal aspect of his left hand just between his first and second knuckle. Upon assessment the demetrice is just through the skin. The patient is able to wiggle all digits and he is able to move the hook [id number] under his skin without issue. I have ordered for 1% lidocaine. I will numb the area and then attempt to pull the hook back as it is just barely through the skin. Last Recorded V/S: Last Vital Signs Temp 99.3 F 11/09/20 18:10 Pulse 70 11/09/20 18:10 Resp 20 11/09/20 18:10 BP 126/66 11/09/20 18:10 Pulse Ox 95 11/09/20 18:10 - Orders/Labs/Meds Meds: Medications Discontinued Medications Generic Name Dose Route Start Last Admin Trade Name Giancarlo PRN Reason Stop Dose Admin Lidocaine HCl 10 ml 11/09/20 18:40 11/09/20 18:59 Lidocaine 1% 10 Ml Mdv INJECT 11/09/20 18:41 10 ml ONETIME ONE Administration - Re-Assessments/Exams Free Text/Narrative Re-Assessment/Exam: 11/09/20 19:10 Area was numbed with 1% lidocaine around the hook. Attempted to pull the hook back however was unable to. Scalpel was used to incise a small area of skin and the hook was easily removed. Minimal bleeding is noted. However, the patient is on 2 different blood thinners so it is oozing. I have ordered for nursing staff to apply a small amount of quick clot and a pressure dressing to the area. Patient will be discharged home. Departure - Departure Time of Disposition: 19:11 Disposition: Home, Self-Care 01 Condition: Good Clinical Impression: Fish hook injury of hand Qualifiers: Encounter type: initial encounter Laterality: left Qualified Code(s): S69.92XA - Unspecified injury of left wrist, hand and finger(s), initial encounter - Discharge Information Referrals: Rehan Warner MD [Primary Care Provider] - Additional Instructions: You were seen in the emergency department today with a fishhook in your left hand. The area was cleaned with alcohol and local anesthetic was injected to numb the area. A scalpel was used to incise a small area of your skin and the fishhook was able to be removed. Keep the pressure dressing to your hand for the next 24 hours after that you may remove the dressing. Wash the area twice a day with mild soap such as Dial soap. Pat dry and apply a thin layer of bacitracin. May apply a bandage. Watch for any signs or symptoms of infection such as swelling, warmth, redness or pus. Sepsis Event Note (ED) - Evaluation Sepsis Screening Result: No Definite Risk - Focused Exam Vital Signs: Vital Signs Temp Pulse Resp BP Pulse Ox 11/09/20 18:10 99.3 F 70 20 126/66 95
== END 2020-11-09 19:25 | disposition home or self-care (01) ==
LOC: JD.ED 17:53
DX: S60.552A Superficial foreign body of left hand, initial encounter (principal); I48.91 Unspecified atrial fibrillation; I25.10 Atherosclerotic heart disease of native coronary artery without angina pectoris; I11.0 Hypertensive heart disease with heart failure; I50.9 Heart failure, unspecified; E78.00 Pure hypercholesterolemia, unspecified; I25.2 Old myocardial infarction; K21.9 Gastro-esophageal reflux disease without esophagitis; E66.9 Obesity, unspecified; Z68.33 Body mass index [BMI] 33.0-33.9, adult; W45.8XXA Other foreign body or object entering through skin, initial encounter
CPT/HCPCS: 10120; 99282; 99283-25